=== PATIENT | male | born 1980 ===

== ENCOUNTER 2019-04-03 08:06 | Outpatient (CLI) | payer OTHER ==
[~2019-04-03] VITALS: Ht 167.6 cm; Wt 127.0 kg
[2019-04-03 08:34] VITALS: BP 147/88
[2019-04-03] MEDS ORDERED: TYLENOL EXTRA500 MG ORAL (08:34)
[2019-04-03] MEDS ORDERED: Omnipaque-300 100ml vial INJ ONE (09:00)
--- NOTE | 2019-04-03 09:30 | Short Stay Surgery H&P ---
History of Present Illness History of Present Illness Chief Complaint lower back pain HPI Rufus Manzanares is a 38 year old male who was admitted on for Meniscus Derangement Left Knee Patient History Allergies: Coded Allergies: No Known Allergies (Unverified , 04/03/19) PAST MEDICAL HISTORY: (1) Lumbosacral spondylosis Onset Date: ~ 04/07/2017 Patient History Narrative The patient was involved in a work-related accident on 04/07/2019 and suffered lower back pain that was resistant to conservative management. He is here today for lumbar facet injections with platelet rich plasma. Medication History Scheduled PRN Acetaminophen* (Tylenol Extra Strength*), 500 MG ORAL Q8H PRN for Prn Headache/ Temp > 101, (Reported) Review of Systems Cardiovascular: Denies: no symptoms, see HPI, hypertension, CAD - stable, angina, MO, CABG, dysrhythmia, CHF, valvular disease, rheumatic heart disease, peripheral vascular disease, source of infx - skin, source of infx-indw cath, source of infx-prosthesis, other Respiratory: Denies: no symptoms, see HPI, asthma, chronic bronchitis, pneumonia, COPD, URI, tuberculosis, sleep apnea, CPAP, home 02, other Skeletal: Reports: spinal disc disease, trauma Gastrointestinal: Denies: no symptoms, see HPI, obesity, peptic ulcer disease, gastro esophageal reflux disease, hiatal hernia, jaundice, hepatitis A,B,C, other Genitourinary: Denies: no symptoms, see HPI, renal insufficiency, endstage renal disease, dialysis, UTI, urinary retention, BPH, other Neurologic: Reports: neuropathy; Denies: no symptoms, see HPI, seizure, stroke/ TIA, neuro muscular disease, other Endocrine: Denies: no symptoms, see HPI, diabetes - type 1, diabetes - type 2, thyroid, post menopausal, other Hematologic: Denies: no symptoms, see HPI, anemia, coagulopathy, prior transfusion, other Physical Exam Vital Signs Last Vital Signs Date Time Temp Pulse Resp B/P (MAP) Pulse Ox O2 Delivery O2 Flow Rate FiO2 04/03/19 08:34 97.2 72 18 147/88 96 Room Air Skin: abnormal HENT: normal Heart: normal Lungs: normal Abdomen: normal Extremities: abnormal Genitourinary: normal Plan Plan of Care lumbar L4-L5 and L5-S1 intra-articular facet injections with PRP Preop Interventions rest, physical therapy, anti-inflammatories Summary of Findings lumbar spondylosis Attestation Are the patient's medical conditions optimized for surgery? Attestation Response: yes Galina Teixeira MD Apr 03, 2019 09:30
--- NOTE | 2019-04-03 09:33 | Pre-Procedure Note/Attestation ---
Pre-Procedure Note/Attestation Complete Prior to Procedure Planned Procedure: bilateral Procedure Narrative: Bilateral L4-L5 and L5-S1 intra-articular facet injections with PRP Indications for Procedure Pre-Operative Diagnosis: lumbosacral spondylosis Attestation I attest that I discussed the nature of the procedure; its benefits; risks and complications; and alternatives (and the risks and benefits of such alternatives ), prior to the procedure, with the patient (or the patient's legal claims service representative). I attest that, if there was a reasonable possibility of needing a blood transfusion, the patient (or the patient's legal claims service representative) was given the [facility] standardized written summary, pursuant to the Sudarshan Gustine Blood Safety Act ([place] Health and Safety Code # 1645, as amended). I attest that I re-evaluated the patient just prior to the surgery and that there has been no change in the patient's H&P, except as documented below: Galina Teixeira MD Apr 03, 2019 09:33
[2019-04-03 10:00] VITALS: BP 120/80
--- NOTE | 2019-04-03 13:50 | Brief Operative Note ---
Immediate Post Operative Note Operative Note Chief Complaint: lower back pain Pre-op Diagnosis: lumbosacral spondylosis Procedure: Bilateral L4-L5 and L5-S1 intra-articular facet injection with platelet rich plasma. Post-op Diagnosis: lumbosacral spondylosis Post-op Diagnosis: same as pre-op Findings: consistent w/pre-op dx studies Surgeon: Galina Teixeira M.D. Straw Hat Washer Operator: none Additional Surgeons: none Anesthesiologist: none Anesthesia: local Specimen: none Complications: none Condition: stable Fluids: none Estimated Blood Loss: minimal - 10mL for PRP Drains: none Packing: none Tourniquet time: 0 Implant(s) used?: Galina Green MD Apr 03, 2019 13:50
--- NOTE | 2019-04-03 13:53 | Discharge Summary ---
Discharge Summary Hospital Course Date of Admission 04/03/2019 Date of Discharge 04/03/2019 Admitting Diagnosis Lumbosacral spondylosis Reason for Hospitalization: short stay HPI Rufus Manzanares is a 38 year old male who was admitted on for Meniscus Derangement Left Knee Consultations none Procedures Bilateral L4-L5 and L5-S1 intra-articular facet injection with platelet rich plasma. Hospital Course short stay Discharge Condition Upon Discharge: stable Discharge Disposition Patient was discharged to home. Discharge Diagnoses: (1) Lumbosacral spondylosis Discharge Instructions Discharge Instructions Follow up with: Dr. Teixeira Diet: regular Activity: as tolerated, okay to shower For Surgical Patients Dressing Care: may change May shower: Yes Contact your physician for: bleeding, pain, tenderness, redness, swelling, yellowish discharge in the op. site Galina Teixeira MD Apr 03, 2019 13:53
--- NOTE | 2019-04-03 14:09 | Operative Note - PDOC ---
Operative Note Operative Note Date of Operation/Procedure: Apr 03, 2019 Chief Complaint: lower back pain Pre-op Diagnosis: lumbosacral spondylosis Procedure: Bilateral L4-L5 and L5-S1 intra-articular facet injection with platelet rich plasma. Post-op Diagnosis: lumbosacral spondylosis Post-op Diagnosis: same as pre-op Operative Findings: consistent w/pre-op dx studies Surgeon: Galina Teixeira M.D. Cognos Developer: none Additional Surgeons: none Anesthesiologist: none Anesthesia: local Specimen: none Complications: none Condition: stable Fluids: none Estimated Blood Loss: minimal - 10mL for PRP Drains: none Packing: none Tourniquet time: 0 Implant(s) used?: No Indications for Procedure The patient has a date of loss of 04/07/2019 when he had an accident at work. He has suffered with lower back pain ever since. He is here for his second set of facet injections, this time with platelet rich plasma. Description of Procedure The patient was seen and identified in the preoperative area. Risks, benefits, complications, and alternatives were discussed with the patient. The patient agreed to proceed with the procedure and signed the consent. The preop nurse removed 10 mL of blood from the patient's AC under sterile conditions and placed it in the PRP tube. The tube was then placed in the centrifuge and spun for 10 minutes at 4000 rpm. The patient was then placed in the prone position, and lumbosacral area was prepped with Betadine x 3 and draped in the usual sterile fashion. Critical pause was taken. Using right oblique fluoroscopy, the right L4-L5 and L5-S1 facet joints were identified, and skin and deeper tissues were anesthetized with 1% lidocaine. We used 22- gauge 5-inch spinal needles for the procedure. The first needle was guided intra -articularly by fluoroscopy to the L4-L5 joint. The second needle was guided intra-articularly by fluoroscopy to the L5-S1 joint. Tip position was confirmed on lateral fluoroscopy. After negative aspiration of CSF and blood with no paresthesias, 0.5mL of Omnipaque 240 was injected illustrating excellent arthrogram. Again after negative aspiration of CSF and blood with no paresthesias, 1 mL of PRP was was injected into each joint. The fluoroscopic camera was then placed in the left oblique position and the same procedure was repeated on the left side. The needles were removed, skin was cleansed, and bandages were applied. The patient tolerated the procedure well without complications, and was discharged from recovery room after meeting discharge. Follow up: The patient will follow up in two weeks. He was told to avoid NSAID , jacuzzi baths and icing the area. Galina Teixeira MD Apr 03, 2019 14:09
--- NOTE | 2019-04-03 17:11 | Diagnostic Imaging Report ---
INDICATION: Pain, intraoperative TECHNIQUE: Intraoperative imaging Fluoroscopy time: 66.8 seconds Total dose: [id number] Total number of images: 4 COMPARISON: None FINDINGS: Intraoperative images demonstrate bilateral L4 and L5 facet injections, documented by contrast injection IMPRESSION: Intraoperative imaging, as described
== END 2019-04-03 10:15 | disposition home or self-care (01) ==
LOC: RAD 08:06
DX: M47.9 Spondylosis, unspecified (principal); M54.5 Low back pain
CPT/HCPCS: 62323; 64483; 76000